=== PATIENT | female | born 1945 | race Caucasian/White ===

== ENCOUNTER 2019-01-13 05:31 | Inpatient (IN) | payer OTHER ==
[2018-12-28 13:36] LABS: HEMATOCRIT 40.9 % (37.0-47.0); MCH 29.9 pg (26.0-34.0); MCHC 34.2 g/dL (28.0-37.0); MCV 87.6 fL (80.0-100.0); RBC 4.66 mil/uL (4.20-5.00); RDW 13.3 % (10.5-14.5); URINE BILIRUBIN NEGATIVE (Negative); URINE BLOOD NEGATIVE (Negative); URINE CLARITY CLEAR; URINE COLOR YELLOW; URINE GLUCOSE-RANDOM* TRACE (Negative); URINE KETONES NEGATIVE (Negative); URINE LEUKOCYTES-REFLEX NEGATIVE (Negative); URINE NITRITE-REFLEX NEGATIVE (Negative); URINE PROTEIN (DIPSTICK) NEGATIVE (Negative); URINE SPECIFIC GRAVITY 1.025 (1.005-1.035); WBC 6.9 thou/uL (4.0-11.0)
[2018-12-28 13:43] LABS: ALBUMIN 3.6 g/dL (3.4-5.0); CALCIUM 9.2 mg/dL (8.5-10.1); CREATININE 1.1 mg/dL (0.6-1.0)
[2018-12-28 13:48] LABS: INR 1.1; PROTIME 11.2 Seconds (9.3-11.4)
--- NOTE | 2018-12-29 09:09 | EKG ---
[address] [address] ELECTROCARDIOGRAM REPORT Name: JOSELYN CLAROS Room #: [facility]#: [id number] ������������������ Admission: ������������������ Attend Phys: Godwin Eubanks MD Discharge: ������������������ Date of : 47 Report #: [id number] ����������������������������������������������������������������� [id number] THIS REPORT FOR: //name// [facility] Test Date: 2018-12-28 Test Time: 13:18:23 Pat Name: JOSELYN CLAROS Department: Room: Gender: F Personal Secretary: Imelda DEVLIN : 1945 Requested By: Godwin Eubanks Order Number: [id number] MD: Manny Mathews Measurements Intervals [place] Rate: 83 P: 2 NE: 155 QRS: 51 QRSD: 89 T: 35 QT: 377 QTc: 443 Interpretive Statements Sinus rhythm Normal tracing No previous ECG available for comparison Electronically Signed On 12-29-2018 9:09:40 CDT by Manny Mathews [email or web address] ��������������������������������������������� <ELECTRONICALLY SIGNED> ���������������������������������������� By: Manny Mathews MD, [facility] ��������������������������������������������� 12/29/18 0909 [id number] Manny Mathews MD, FACC /EPI
[2018-12-29 12:06] LABS: GLYCOHEMOGLOBIN (HGB A1C) 7.6 % (4.8-5.6)
[~2019-01-13] VITALS: Ht 162.6 cm; Wt 90.7 kg
[2019-01-13] VITALS (9 sets, daily range): BP systolic 117–162; BP diastolic 64–100
[~2019-01-13 05:31] MED LIST: ASPIR 8181 MG PO; BASAGLAR K100 UNIT/1 SUBQ; CARVEDILOL12.5 MG PO; LIPITOR80 MG PO; LISINOPRIL10 MG PO; NITROGLYCERIN0.4 MG SUBLING; OMEPRAZOLE 20 M20 M1 PO; TRULICITY0.75 MG/0. SUBQ; ZOLOFT100 MG PO
[2019-01-14 00:05] VITALS: BP 115/74
[2019-01-14 03:58] VITALS: BP 146/77
[2019-01-14 04:52] LABS: HEMATOCRIT 37.7 % (37.0-47.0); MCH 30.5 pg (26.0-34.0); MCHC 34.5 g/dL (28.0-37.0); MCV 88.3 fL (80.0-100.0); RBC 4.27 mil/uL (4.20-5.00); RDW 13.7 % (10.5-14.5); WBC 10.8 thou/uL (4.0-11.0)
--- NOTE | 2019-01-14 04:52 | NUR ---
ASSUMED CARE OF PT AT 2030HRS. PT IS AOX4 AND CALLS FOR HELP NEEDED. FALL PRECAUTION IN PLACE. PT REPORTS SOME PAIN AND WAS TREATED BY PO PAIN MEDS. PT IS VOIDING AND IS UP WITH ONE ASSIST. NO S/S OF ACUTE DISTRESS. SURGICAL DRESSING IS INTACT. PT IS [place] AND READS LIPS. WILL CONTINUE TO MONITOR.
[2019-01-14 08:14] VITALS: BP 139/72
--- NOTE | 2019-01-14 09:38 | O ---
[facility] [place] [address] OPERATIVE REPORT Name: JOSELYN CLAROS Room #: 455-P [facility] IN M.R.#: [id number] Admission: 01/13/19 ������������������ Attend Phys: Godwin Eubanks MD Discharge: ������������������ Date of : 47 Report #: [id number] THIS REPORT FOR: //name// CC: Physician staff Godwin QUINTANA DATE OF SERVICE: 01/13/2019 PREOPERATIVE DIAGNOSIS: Left knee medial compartment osteoarthritis. POSTOPERATIVE DIAGNOSIS: Left knee medial compartment osteoarthritis. PROCEDURE: Left medial compartment knee arthroplasty using Navio-robotic assistance. SURGEON: Godwin Eubanks MD. TOOL ENGINEER: None. ANESTHESIA: LMA with an adductor canal block. IMPLANTS: Tapia and Nephew size 4 Journey medial femoral Oxinium component, size 2 tibia and a size 9 polyethylene. TOURNIQUET TIME: 53 minutes. ESTIMATED BLOOD LOSS: 25 mL. COMPLICATIONS: None. SPECIMENS: None. CONDITION UPON LEAVING THE OPERATING ROOM: Stable. INDICATIONS FOR PROCEDURE: The patient is a 73-year-old female with severe left knee medial compartment osteoarthritis. She failed conservative measures for this and after discussion with her, she elected for left medial compartment knee arthroplasty. DESCRIPTION OF PROCEDURE: Risks, benefits, alternatives and complications were discussed in detail with the patient including but not limited to risk of anesthesia, risk of damage to nerves, arteries, blood vessels, risk for infection, bleeding, risk for continued knee pain, need for reoperation. Informed consent was obtained from the patient. Left knee was appropriately marked in the preoperative holding area. IV Ancef was given for preoperative [facility] [address] [place] [address] OPERATIVE REPORT Name: JOSELYN CLAROS Room #: 455-P ADM IN M.R.#: [id number] Admission: 01/13/19 ������������������ Attend Phys: Godwin Eubanks MD Discharge: ������������������ Date of : 47 Report #: [id number]. She was brought to the operating room and placed in the supine position on the operating room table. LMA anesthesia was induced without complication. Tourniquet was placed on the left thigh. Left lower extremity was prepped and draped in normal sterile fashion. Timeout was performed properly identifying the patient and procedure as well as the instrumentation. All in the operating room were in agreement. Left lower extremity was exsanguinated, tourniquet was inflated. Tourniquet time was 53 minutes. Standard medial approach to the knee was made with 10-blade through the skin. Dissection was taken down sharply to the fascia and deep flaps were developed medially and laterally. Fresh 10-blade was used to make a medial parapatellar arthrotomy and the knee was inspected. There was severe medial compartment osteoarthritis. The lateral compartment was well maintained. ACL was intact. Patellofemoral compartment demonstrated only grade 2 chondromalacia. It was decided to proceed with unicompartmental knee arthroplasty. Reference pins were placed in the femur and the tibia and the knee was digitally mapped using the Navio-robotic system, a size 4 femur, size 2 tibia with a 9 spacer. After acceptance of the intraoperative plan, the femoral and tibial resections were made using the Navio bur. The tibia was then sized, found to be a size 2. A size 2 tibial trial was placed and drilled. A size 4 femoral trial was placed. This was then trialed with a size 8 and then a size 9 polyethylene. Size 9 polyethylene had a mm of laxity throughout range of motion and was felt to have a best fit. After this, trial components were removed. Bony ends were thoroughly irrigated with normal saline. A final size 2 tibia, size 4 femur were cemented in place using standard cementation techniques. While the cement cured, a periarticular injection consisting of morphine, ropivacaine, epinephrine and Toradol was placed around the knee joint capsule. After the cement cured, tourniquet was deflated. Hemostasis was obtained with Bovie cautery. Final size 9 polyethylene was placed. A gram of vancomycin was placed deep in the joint. The fascia was closed with 0 Vicryl, skin was closed with 2-0 Vicryl, 3-0 Monocryl. Dermabond and a ARIANNA dressing was applied. The patient tolerated this procedure well and went to recovery room under care of anesthesia postoperatively. ��������������������������������������������� <ELECTRONICALLY SIGNED> ���������������������������������������� By: Godwin Eubanks MD ��������������������������������������������� 01/14/19 0938 [id number] 29 Godwin Eubanks MD /nt
--- NOTE | 2019-01-14 13:11 | NUR ---
DISCHARGE PLANNING. POST ACUTE RECOMMENDED AT DISCHARGE. ANTICIPATED DISCHARGE IS PLANNED FOR TOMORROW. REFERRAL FAXED TO [facility] FOR POST ACUTE PLACEMENT. CALL PLACED TO YSABEL CHAVEZ ADMISSIONS TO NOTIFY OF REFERRAL AND PLANNED DISCHARGE DATE. SCOTT TO REVIEW AND NOTIFY CM ONCE COMPLETE. FOLLOWING TO ASSIST.
--- NOTE | 2019-01-14 15:49 | NUR ---
PT ADMITTED RELATED TO LEFT UNICOMPARTMENTAL KNEE REPLACEMENT. CM REVIEWED CHART AND SPOKE WITH CARE TEAM. CM MET PT AT BEDSIDE THIS DAY PT IS A&O X4. CM ROLE INTRODUCED. PT IS HEARING INPAIRED BUT READS LIPS. SHE INDICATED THAT SHE LIVES ALONE IN A HOUSE WITH 2 STEPS TO ENTER AND NO STEPS INSIDE. PT INDICATED SHE HAD USED A CANE TO ASSIST WITH AMBULATION ROUTE SALESMAN. PT INDICATED SHE HAS A FRIEND WHO WILL BE ABLE TO ASSIST AT TIMES UPON DC. PT HAD INITIALLY WANTED TO GO SKILLED BUT IS NOW THINKING SHE WOULD LIKE TO GO HOME WITH HOME HEALTH. PT WILL NEED A FWW ISSUED PTD. CM TO FOLLOW INDICATED WITH DC PLANNING. CM TO FOLLO INDICATED WITH DC PLANNING.
[2019-01-14 15:58] VITALS: BP 124/53
--- NOTE | 2019-01-14 18:01 | NUR ---
PATIENT DOING WELL TODAY. HAVING MINIMAL PAIN. TOLERATING DIET. SAT UP IN CHAIR FOR MOST OF THE DAY. ELEVATED BLOOD SUGAR THIS AM. DR. WALDEN ROUNDED AND DR. SORTO CONSULTED FOR MEDICAL MANAGEMENT. BLOOD SUGAR NOW DOWN TO 174 BEFORE SUPPER. PATIENT NOW ON SLIDING SCALE. VOIDING WITHOUT DIFFICULTY AND IN ADEQUATE AMOUNTS. LT KNEE ARIANNA DRESSING COMPRESSED. FALL PRECAUTIONS IN PLACE. PATIENT ABLE TO MAKE NEEDS KNOWN.
[2019-01-14 19:20] VITALS: BP 151/71
--- NOTE | 2019-01-15 02:12 | NUR ---
ASSUMED CARE OF PT @1900 ON THIS DAY PT A&OX4. STATED GOAL IS TO GET MOVING AND BETTER. UP UITH ASSITX1. ARIANNA DERESSING ON LEFT KNEE INTACT. PAIN MEDS GIVEN FOR MANAGEMENT. BED IN LOW POSITION AND CALL LIGHT WITHIN REACH WILL CONTINUE TO MONITOR.
[2019-01-15 04:36] VITALS: BP 127/72
[2019-01-15 07:45] LABS: HEMATOCRIT 36.9 % (37.0-47.0); HEMOGLOBIN 12.7 gm/dL (12.0-15.0); MCH 30.2 pg (26.0-34.0); MCHC 34.3 g/dL (28.0-37.0); RBC 4.2 mil/uL (4.20-5.00); RDW 13.5 % (10.5-14.5); WBC 10.1 thou/uL (4.0-11.0)
[2019-01-15 08:00] VITALS: BP 144/78; BP 149/78
--- NOTE | 2019-01-15 10:40 | NUR ---
PATIENT CARE WAS ASSUMED AT 0715.PATIENT IS ALERT AND ORIENTED X4.PATIENT HARD OF HEARING, ANDIS ABLE TO UNDERSTAND WHAT IS BEING SAID WHEN SHE READS YOUR LIPS.PATIENT IS ABLE TO AMBULATE WITH WALKER WITH X1 ASSIST.PT IS OKAY WITH PATIENT GOING HOME WITH HOME HEALTH.PT HAS PAIN 8/10 THIS MORNING.PAIN MEDS WERE GIVEN THIS MORNING BY RUBBER STAMP ASSEMBLER NURSE, AND OTHER PAINS WERE GIVEN WITH MORNING MEDS.PT HAS CALL LIGHT, PHONE, PERSONAL BELONGINGS WITHIN REACH.
[2019-01-15] MEDS ORDERED: ASPIR 8181 MG PO (11:54)
[2019-01-15] MEDS ORDERED: NEURONTIN 300300 M1 PO (11:54)
[2019-01-15 12:15] VITALS: BP 144/78
--- NOTE | 2019-01-15 12:27 | NUR ---
PT IS TO DISCHARGE HOME THIS DAY WITH [facility] PT AND OT. PT WAS ISSUED A FWW FOR USE UPON DC THROUGH [facility]. PT INDICATED HER FRIEND AND HER WILL BE PROVIDING TRANSPORT HOME LATER THIS AFTERNOON. PT INDICATED SHE WOULD STOP AND GET A BCS FOR USE AT HOME. [facility] WILL DO A SOC ON FRIDAY. NO OTHER CM INTERVENTION INDICATED. CASE CLOSED.
--- NOTE | 2019-01-15 15:34 | NUR ---
PATIENT WAS DISCHARGED TO GO HOME WITH HOME HEALTH.IV WAS TAKEN OUT, CATH INTACT.PATIENT HAS WALKER, AND ALL OF HER PERSONAL BELONGINGS.PT'S PAIN IS WELL CONTROLED AT THIS TIME.PATIENT WAS GIVEN DISCHARGED PAPERWORK WITH EDUCATION ON NEW MEDICATION.PATIENT WA TAKEN DOWN TO CAR VIA W/C BY DOUBLE END TENONER OPERATOR/AND FRIEND OF FAMILY.
== END 2019-01-15 15:48 | disposition home health service (06) | DRG 470 ==
LOC: 4W 05:31 → TBA 05:31 → PRE 05:44 → 4W 20:33
PROVIDERS: ADMIT Orthopaedic Surgery
PROC: 8E0Y0CZ Robotic Assisted Procedure of Lower Extremity, Open Approach (ICD-10-PCS; principal; 2019-01-13)
PROC: 0SRD0L9 Replacement of Left Knee Joint with Medial Unicondylar Synthetic Substitute, Cemented, Open Approach (ICD-10-PCS; principal; 2019-01-13)
DX: M17.12 Unilateral primary osteoarthritis, left knee (principal); I10 Essential (primary) hypertension; E78.5 Hyperlipidemia, unspecified; E11.65 Type 2 diabetes mellitus with hyperglycemia; Z88.6 Allergy status to analgesic agent; Z79.899 Other long term (current) drug therapy; Z88.2 Allergy status to sulfonamides
CPT/HCPCS: 10047; 50010; 50101; 50415; 50954; 51130; 51225; 53078; 53370; 54118; 56527; 56528; 57095; 57103; 57110; 57127; 57180; 62110; 62900; 70005

== ENCOUNTER → 2019-06-09 | Outpatient (CLI) | payer OTHER ==
[~2019-06-09] MED LIST changes: +NEURONTIN 300300 M1 PO
== END ==
LOC: ULTRA 14:37
DX: M79.605 Pain in left leg (principal); M79.89 Other specified soft tissue disorders